=== PATIENT | female | born 1985 | race Two or more races ===

== ENCOUNTER 2025-04-11 00:47 | Observation (INO) | payer OTHER, SELFPAY ==
[2025-04-11] VITALS (25 sets, daily range): BP systolic 117; BP diastolic 67; PULSE 73–91; RESP 18–100; TEMP 36.7; O2SAT 96–99; BMI 30.6
[2025-04-11 02:24] LABS: Collection Type, Urine Clean Catch
[2025-04-11 02:42] LABS: Bacteria,Urine Rare; Bilirubin,Urine Negative (Negative); Blood,Urine Negative (Negative); Clarity,Urine Clear (Clear/Hazy); Color,Urine Lt-Yellow (Lt Yel-Yel); Glucose, Urine 2+ (Negative); Ketones,Urine Negative (Negative); Leukocyte Esterase,Urine Positive (Negative); Nitrite,Urine Negative (Negative); PH,Urine 5.5 (5.0-7.0); Protein,Urine Negative (Neg - Trace); RBC,Urine 1 /hpf (0-3); Specific Gravity,Urine 1.018 (1.001-1.035); Squamous Epithelial Cell,Urine 4 /hpf (0-5); Urobilinogen,Urine Negative mg/dL (0.0-1.0); WBC,Urine 4 /hpf (0-5)
[2025-04-11 02:50] LABS: FFN Specimen Descripton Clr Colrless Aqueous
[2025-04-11 02:51] LABS: Fetal Fibronectin Negative (Negative)
== END 2025-04-11 03:29 | disposition home or self-care (01) ==
PROVIDERS: Admitting Provider Obstetrics & Gynecology; PCP Advanced Practice Midwife; Visit Provider Obstetrics & Gynecology
DX: O26.893 Other specified pregnancy related conditions, third trimester (principal); Z3A.30 30 weeks gestation of pregnancy; R10.2 Pelvic and perineal pain; M54.9 Dorsalgia, unspecified
CPT/HCPCS: 59025; 59899; 81001; 82731

== ENCOUNTER 2025-04-14 09:47 | Outpatient (AMB) | payer OTHER, SELFPAY ==
[2025-04-14 10:06] VITALS: BP 110/66; PULSE 83; RESP 18; TEMP 36.5; O2SAT 97; BMI 30.9
--- NOTE | 2025-04-14 10:06 | OBCLNT_ITS ---
Vital Signs 04/14/25 10:06 Height 1.6 m Height Method Stated Weight 79.095 kg Weight Measurement Method Standing Scale BMI 30.9 BP 110/66 Blood Pressure Source Automatic Cuff Blood Pressure Location Right Upper Arm Position Sitting Respiration 18 Pulse 83 Pulse Source Monitor Temp 97.7 F Temp Source Temporal Artery Scan Pulse Oximetry (%) 97 Oxygen Delivery Method Room Air Allergies/Home Meds Allergies & Medications Allergies No Known Allergies Allergy (Verified 04/11/25 01:55) Intake Visit Data Collection New Patient or Established: Established Patient (seen at [facility] within 3 years) Reason for Visit:: OBI Seen by Clinical Staff ONLY (RN/MA): No Do You Feel Safe at Home: Yes Authorities Contacted: N/A PCP or OBGYN visit in last 3 months: Yes Hx Now: Yes Are you currently on any form of Control: No Last menstrual period: 08/28/24 Pain Present Currently: No Smoking Status Smoking Status: Never smoker Questionnaires Social History Tobacco History Smoking Status: Never smoker Domestic Abuse History Do You Feel Safe at Home: Yes History of Present Illness HPI Narrative 39-year-old 5 para 3 for OBI. Patient's transfer from Dr. Larsen's office with records. Her last period August 27, 2024. Estimated due date based on LMP was June 03, 2025. 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 First ultrasound was January 19, 2025. Patient was 18 weeks 6 days. And corrected TIM is June 16, 2025. Patient reports that she has not had any problems with the . She is in good contact with adoptive family. Patient is A+, antibody screen negative, RPR nonreactive, rubella immune, hepatitis B negative, hep C negative, HIV negative, rubella nonimmune. GC and Chlamydia were negative. aFP was negative. Cystic fibrosis and NIPT were all negative. Patient had a abnormal 1 hour GTT but 3-hour was normal. And her A1c 5.6. Patient has an ultrasound appointment pending with [facility] on April 28. Patient denies social habits. Denies surgery. Denies chronic illness. Patient reports good movement. 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 Patient is a transfer from Dr. Larsen's office with records. This is a surrogacy product . She has an TIM June 16, 2025. Just based on an 18-week ultrasound done in December. Reports good movement. Denies leaking, bleeding, contractions. The so far is been normal and no problems. She has a follow-up MFM appointment at [facility] April 28 Keep MFM ap pointment. Continue vitamins. Discussed labor precautions. Patient declined Tdap today. Return in 2 weeks for OB check Menstrual History Menstrual reliability: definite Flow: normal Menstrual regularity: regular Monthly: Yes On control pills at conception: No OB History : 5 Para: 3 Hx # Pregnancies: 0 Hx Total # of Abortions (Spontaneous & Elective): 1 # of Living Children: 3 Delivery History 1st : date: 12/04/05 sex: male Gestational age at delivery (weeks): 40 Delivery type: vaginal 2nd : date: 09/14/06 sex: male Gestational age at delivery (weeks): 40 Delivery type: vaginal 3rd : date: 12/28/14 sex: female Gestational age at delivery (weeks): 40 Delivery type: vaginal 4th : date: 04/08/24 Delivery complications: D&C Genetic Screening & History Genetic Screening/Teratology Counseling - Includes patient, baby's father, or anyone in either family with: 1. Patient's age 35 years or older as of estimated date of delivery: No 2. Thalassemia (Syriac, Welsh, Mediterranean, or Background); MCV less than 80: No 3. Neural Tube Defect (Meningomyelocele, Spina Bifida, or Anencephaly): No 4. Congenital Heart Defect: No 5. Down Syndrome: No 6. Christiano-Sachs (Ashkenazi Rastafarian, Cajun, Serbian Buchanan): No 7. Grant Disease (Ashkenazi Rastafarian): No 8. Familial Dysautonomia (Ashkenazi Rastafarian): No 9. Sickle Cell Disease or Trait (): No 10. Hemophilia or other blood disorders: No 11. Muscular Dystrophy: No 12. Cystic Fibrosis: No 13. Codington's Chorea: No 14. Mental Retardation/Autism: No 15. Other inherited genetic or chromosomal disorder: No 16. Maternal Metabolic Disorder (EG,TYPE 1 Diabetes, PKU): No 17. Patient or baby's father had a child with defects not listed above: No 18. Recurrent loss or a stillbirth: No 19. Medications (including supplements, vitamins, herbs or otc drugs)/illicit/recreational drugs/alcohol since last menstrual period: No 20. Any other: No Infection History 1. Live with someone with TB or exposed to TB: No 2. Rash or viral illness since last menstrual period: No 3. Hepatitis B,C: No Other (see comments) Source: [employer] Review of Systems Review of Systems Systems Reviewed: All systems reviewed, normal except as documented Exam General Limitations: no limitations General Appearance: alert, in no apparent distress, comfortable, cooperative, healthy appearing, well developed and well groomed Head Head exam: atraumatic, normocephalic and normal inspection Neck Neck exam: Present normal inspection, full ROM and trachea midline Chest Chest inspection: Present normal inspection and symmetric chest wall rise Resp Respiratory exam: Present normal lung sounds bilaterally Card Cardiovascular exam: Present regular rate, normal rhythm and normal heart sounds Abdominal Abdominal exam: Present soft and normal bowel sounds Extremities Extremities exam: Present normal inspection and full ROM Psych Psychiatric exam: Present normal affect and normal mood Assessment & Plan Diagnosis / Problem List (1) Encounter for supervision of high risk in third trimester, antepartum: Status: Acute Plan MFM appointment April 28. Discussed labor precautions. Kick count twice a day. Patient will ask adoptive parents if they want her to get Tdap and let me know. Continue vitamins. Return in 2 weeks OB check Additional Plan Follow Up: 2 Weeks (obc)
== END 2025-04-14 10:44 | disposition home or self-care (01) ==
LOC: HODSOBC 09:47
PROVIDERS: Supervising Provider Advanced Practice Midwife; Visit Provider Advanced Practice Midwife
DX: O09.93 Supervision of high risk pregnancy, unspecified, third trimester (principal); Z3A.31 31 weeks gestation of pregnancy; Z28.21 Immunization not carried out because of patient refusal
CPT/HCPCS: 99204; G0463

== ENCOUNTER 2025-04-29 11:26 | Outpatient (AMB) | payer OTHER, SELFPAY ==
--- NOTE | 2025-04-29 11:31 | OBCLNT_ITS ---
Vital Signs 04/29/25 11:37 Height 1.6 m Height Method Stated Weight 79.832 kg Weight Measurement Method Standing Scale BMI 31.1 BP 115/73 Blood Pressure Source Automatic Cuff Blood Pressure Location Left Upper Arm Position Sitting Respiration 16 Pulse 81 Pulse Source Monitor Temp 97.2 F Temp Source Oral Pulse Oximetry (%) 98 Oxygen Delivery Method Room Air Allergies/Home Meds Allergies & Medications Allergies No Known Allergies Allergy (Verified 04/29/25 11:32) Medication Reconciliation aspirin 81 mg tablet,delayed release 81 mg PO QDAY 04/11/25 [History Confirmed 04/29/25] vits no.130-ferrous fum 27 mg iron-folic acid 800 mcg tablet ( Vitamin) 1 tab PO QDAY 04/11/25 [History Confirmed 04/29/25] Intake Visit Data Collection New Patient or Established: Established Patient (seen at [facility] within 3 years) Reason for Visit:: OBC Seen by Clinical Staff ONLY (RN/MA): No Transporter Radiology Required: No Do You Feel Safe at Home: Yes Authorities Contacted: N/A PCP or OBGYN visit in last 3 months: Yes Date of Last PCP or OBGYN visit: 04/11/25 Hx Now: Yes Are you currently on any form of Control: No Pain Present Currently: No Pain Scale Used: Redman-Pereira/Numerical Pain scale:: 0 Smoking Status Smoking Status: Never smoker Questionnaires Covid-19 Vaccine Questionnaire Has patient been vacinated for Covid-19 Have you been vacinated for Covid-19: No PHQ-9 PHQ-2 Over the last 2 weeks, how often have you been bothered by any of the following problems? 1. Little interest or pleasure in doing things: not at all 2. Feeling down, depressed, or hopeless: not at all Total score: 0 PHQ-9 3. Trouble falling or staying asleep, or sleeping too much: Not at all 4. Feeling tired or having little energy: Not at all 5. Poor appetite or overeating: Not at all 6. Feeling bad about yourself - or that you are a failure or have let yourself or your family down: Not at all 7. Trouble concentrating on things, such as reading the newspaper or watching television: Not at all 8. Moving or speaking so slowly that other people could have noticed? - Or the opposite - being so fidgety or restless that you have been moving around a lot more than usual: not at all 9. Thoughts that you would be better off or of hurting yourself in some way: Not at all Total score: 0 If you checked off any problems, how difficult have these problems made it for you to do your work, take care of things at home, or get along with other people?: not difficult at all Source: Developed by Drs. Alexander Butterfield, Laney Ji, Gordo Avila and colleagues, with an educational charles from [employer]. 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 Patient is a transfer from Dr. Larsen's office with records. This is a surrogacy product . She has an TIM June 16, 2025. Just based on an 18-week ultrasound done in December. Reports good movement. Denies leaking, bleeding, contractions. The so far is been normal and no problems. She has a follow-up MFM appointment at [facility] April 28 Keep MFM ap pointment. Continue vitamins. Discussed labor precautions. Patient declined Tdap today. Return in 2 weeks for OB check 04/29/25 -?-?-?-?-?-?-?-?-?-?-?-?- 33w 1d 79.832 kg 115/73 absent cephalic 33 140 active Reports movement. Denies labor symptoms. Denies contractions, bleeding or leaking. Patient has a follow-up MFM ultrasound in 3 weeks and also echo. Return in 2 week s. GBS next visit. Keep appointment for echo and follow- up MFM. Discussed kick count and labor precautions. Increase fluids. TIM Calculator Estimated Delivery Date Method Current WG Current Estimate 06/16/25 Ultrasound #1 33w 1d Other Estimates 06/23/25 LMP (Certain) 32w 1d 06/09/25 Ultrasound #2 34w 1d 06/16/25 Manual 33w 1d final tim: 05/24 12/14 Notes Visit Date: 04/29/25 Last Updated by: Jess Delvalle CNM sono 04/28/25: IUP 33 wk. EFW 91 %, ECHO ordered for IVF/Surrogacy, Ummbilical Vein varix, focal dilation of umb vein.. Star NST wk at 36 week. .f/u mfm 2 wk Visit Date: 04/14/25 Last Updated by: Jess Delvalle CNM 39 yo . 1st OB sono: 01/19/25. IUP 18w6. TIM: !. A+,ABS-, rpr::nr, RUB NI, Hbsag-, hiv-, HC-, GC/CT-. UT-, NIPT,AFP,carrier screen-, 1 hr gtt eevated, 3 hr gtt: normal. A1c>: 5.6 Office Procedures OBC Clinic LOC & Office Proc's Nursing/Assessment Patient Status: Established Patient OB Clinic Nursing Assessment: Medication Reconciliation, Update PMH in EMR and Vital Signs OB Clinic Coordination of Care: Consent,records obtained, informed consent, Education Simp Pt/Fam, Lab and Imaging orders, Results/Orders obtained and Staff clarify orders Special Needs: Heart tones Established Patient Charge Established Patient Point Assignment: 110 Established Patient Point Charge: EP Level 3 (80-115) Assessment & Plan Diagnosis / Problem List (1) Encounter for supervision of high risk in third trimester, antepartum: Status: Acute (2) Advanced maternal age (AMA) in : Status: Acute Plan Start NST BPP at 36 weeks. Discussed labor precautions patient. Discussed kick count twice a day. Patient has a follow-up with M for Doppler and echo in 2 weeks. GBS at 35 weeks. Return in 2 weeks OB check Additional Plan Follow Up: 2 Weeks (obc)
[2025-04-29 11:37] VITALS: BP 115/73; PULSE 81; RESP 16; TEMP 36.2; O2SAT 98; BMI 31.1
== END 2025-04-29 11:44 | disposition home or self-care (01) ==
LOC: HODSOBC 11:26
PROVIDERS: Supervising Provider Advanced Practice Midwife; Visit Provider Advanced Practice Midwife
DX: O09.523 Supervision of elderly multigravida, third trimester (principal); O09.813 Supervision of pregnancy resulting from assisted reproductive technology, third trimester; O09.43 Supervision of pregnancy with grand multiparity, third trimester; Z3A.33 33 weeks gestation of pregnancy; Z33.3 Pregnant state, gestational carrier
CPT/HCPCS: 99213; G0463

== ENCOUNTER 2025-05-14 10:55 | Outpatient (AMB) | payer OTHER, SELFPAY ==
[2025-05-14 11:05] VITALS: BP 116/73; PULSE 83; RESP 18; TEMP 36.2; O2SAT 98; BMI 31.8
--- NOTE | 2025-05-14 11:05 | OBCLNT_ITS ---
Vital Signs 05/14/25 11:05 Height 1.6 m Height Method Stated Weight 81.42 kg Weight Measurement Method Standing Scale BMI 31.8 BP 116/73 Blood Pressure Source Automatic Cuff Blood Pressure Location Left Upper Arm Position Sitting Respiration 18 Pulse 83 Pulse Source Monitor Temp 97.2 F Temp Source Oral Pulse Oximetry (%) 98 Oxygen Delivery Method Room Air Allergies/Home Meds Allergies & Medications Allergies No Known Allergies Allergy (Verified 05/14/25 11:07) Medication Reconciliation aspirin 81 mg tablet,delayed release 81 mg PO QDAY 04/11/25 [History Confirmed 05/14/25] vits no.130-ferrous fum 27 mg iron-folic acid 800 mcg tablet ( Vitamin) 1 tab PO QDAY 04/11/25 [History Confirmed 05/14/25] Intake Visit Data Collection New Patient or Established: Established Patient (seen at [facility] within 3 years) Reason for Visit:: OBC Seen by Clinical Staff ONLY (RN/MA): No Cupola Tapper Required: No Do You Feel Safe at Home: Yes Authorities Contacted: N/A PCP or OBGYN visit in last 3 months: Yes Date of Last PCP or OBGYN visit: 04/23/25 Hx Now: Yes Are you currently on any form of Control: No Pain Present Currently: No Pain Scale Used: Redman-Pereira/Numerical Pain scale:: 0 Smoking Status Smoking Status: Never smoker Immunizations Flu Vaccine in the Last 12 Months: No Flu Vaccine Exclusion Criteria: No Exclusion Criteria Questionnaires Covid-19 Vaccine Questionnaire Has patient been vacinated for Covid-19 Have you been vacinated for Covid-19: No PHQ-9 PHQ-2 Over the last 2 weeks, how often have you been bothered by any of the following problems? 1. Little interest or pleasure in doing things: not at all 2. Feeling down, depressed, or hopeless: not at all Total score: 0 PHQ-9 3. Trouble falling or staying asleep, or sleeping too much: Not at all 4. Feeling tired or having little energy: Not at all 5. Poor appetite or overeating: Not at all 6. Feeling bad about yourself - or that you are a failure or have let yourself or your family down: Not at all 7. Trouble concentrating on things, such as reading the newspaper or watching television: Not at all 8. Moving or speaking so slowly that other people could have noticed? - Or the opposite - being so fidgety or restless that you have been moving around a lot more than usual: not at all 9. Thoughts that you would be better off or of hurting yourself in some way: Not at all Total score: 0 If you checked off any problems, how difficult have these problems made it for you to do your work, take care of things at home, or get along with other people?: not difficult at all Source: Developed by Drs. Alexander Butterfield, Laney Ji, Gordo Avila and colleagues, with an educational charles from [employer]. 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 Patient is a transfer from Dr. Larsen's office with records. This is a surrogacy product . She has an TIM June 16, 2025. Just based on an 18-week ultrasound done in December. Reports good movement. Denies leaking, bleeding, contractions. The so far is been normal and no problems. She has a follow-up MFM appointment at [facility] April 28 Keep MFM ap pointment. Continue vitamins. Discussed labor precautions. Patient declined Tdap today. Return in 2 weeks for OB check 04/29/25 -?-?-?-?-?-?-?-?-?-?-?-?- 33w 1d 79.832 kg 115/73 absent cephalic 33 140 active Reports movement. Denies labor symptoms. Denies contractions, bleeding or leaking. Patient has a follow-up MFM ultrasound in 3 weeks and also echo. Return in 2 week s. GBS next visit. Keep appointment for echo and follow- up MFM. Discussed kick count and labor precautions. Increase fluids. 05/14/25 -?-?-?-?-?-?-?-?-?-?-?-?- 35w 2d 81.42 kg 116/73 absent cephalic 35 145 active Fetus active. Denies contractions, leaking, bleeding GBS today. Discussed labor precautions. Kick count twice a day. Patient NST is pending. She has follow-up ultrasound in a week with MFM and return in a week for OB check TIM Calculator Estimated Delivery Date Method Current WG Current Estimate 06/16/25 Ultrasound #1 35w 2d Other Estimates 06/23/25 LMP (Certain) 34w 2d 06/09/25 Ultrasound #2 36w 2d 06/16/25 Manual 35w 2d final tim: 05/24 12/14 Notes Visit Date: 04/29/25 Last Updated by: Jess Dlevalle CNM sono 04/28/25: IUP 33 wk. EFW 91 %, ECHO ordered for IVF/Surrogacy, Ummbilical Vein varix, focal dilation of umb vein.. Star NST wk at 36 week. .f/u mfm 2 wk Visit Date: 04/14/25 Last Updated by: Jess Delvalle CNM 39 yo . 1st OB sono: 01/19/25. IUP 18w6. TIM: !!. A+,ABS-, rpr::nr, RUB NI, Hbsag-, hiv-, HC-, GC/CT-. UT-, NIPT,AFP,carrier screen-, 1 hr gtt eevated, 3 hr gtt: normal. A1c>: 5.6 Office Procedures OBC Clinic LOC & Office Proc's Nursing/Assessment Patient Status: Established Patient OB Clinic Nursing Assessment: Medication Reconciliation, Update PMH in EMR and Vital Signs OB Clinic Coordination of Care: Consent,records obtained, informed consent, Education Simp Pt/Fam, Lab and Imaging orders, Results/Orders obtained and Staff clarify orders Special Needs: Heart tones Established Patient Charge Established Patient Point Assignment: 110 Established Patient Point Charge: EP Level 3 (80-115) Injection/Vaccine Admin SQ Im Injection: Yes Immunizations diphth,pertus(acell),tetanus 2.5 Lf unit-8 mcg-5 Lf/0.5mL IM syringe Performing Provider: Jess Delvalle CNM Performing Location: [facility] INFORMATION TECHNOLOGY CONSULTANT Clinic Administered by: Maribell Albrecht MA on 05/14/25 13:08 Dose Route Admin Location Dispensed Lot Number Expiration Date Pack age NDC NDC Ammunition Components Inspector 0.5 mL IM Left Deltoid 0.5 mL [id number] 06/19/27 [id number] [employer] VIS Given Date VIS Provided VIS Publication Date 05/14/25 Single Vaccine 24 Eligibility Eligibility Date Funding Source Public Non-[facility] Assessment & Plan Diagnosis / Problem List (1) Encounter for supervision of high risk in third trimester, antepartum: Status: Acute Plan GBS today. Discussed labor precautions. Kick count twice a day. Patient will begin NST BPP. Return in a week for OB check. I discussed diet and weight and increasing activity Additional Plan Follow Up: 1 Week (obc)
== END 2025-05-14 12:05 | disposition home or self-care (01) ==
LOC: HODSOBC 10:55
PROVIDERS: Supervising Provider Advanced Practice Midwife; Visit Provider Advanced Practice Midwife
DX: O09.523 Supervision of elderly multigravida, third trimester (principal); Z3A.35 35 weeks gestation of pregnancy; Z23 Encounter for immunization; Z36.85 Encounter for antenatal screening for Streptococcus B
CPT/HCPCS: 90471; 90715; 96372; 99213; G0463

== ENCOUNTER 2025-05-22 09:57 | Outpatient (AMB) | payer OTHER, SELFPAY ==
[2025-05-22 10:11] VITALS: BP 122/82; PULSE 98; RESP 18; TEMP 36.6; O2SAT 97; BMI 32.8
--- NOTE | 2025-05-22 10:11 | OBCLNT_ITS ---
Vital Signs 05/22/25 10:11 Height 1.6 m Height Method Stated Weight 84.028 kg Weight Measurement Method Standing Scale BMI 32.8 BP 122/82 Blood Pressure Source Automatic Cuff Blood Pressure Location Left Upper Arm Position Sitting Respiration 18 Pulse 98 Pulse Source Monitor Temp 98 F Temp Source Oral Pulse Oximetry (%) 97 Oxygen Delivery Method Room Air Allergies/Home Meds Allergies & Medications Allergies No Known Allergies Allergy (Verified 05/22/25 10:12) Medication Reconciliation aspirin 81 mg tablet,delayed release 81 mg PO QDAY 04/11/25 [History Confirmed 05/22/25] vits no.130-ferrous fum 27 mg iron-folic acid 800 mcg tablet ( Vitamin) 1 tab PO QDAY 04/11/25 [History Confirmed 05/22/25] Intake Visit Data Collection New Patient or Established: Established Patient (seen at [facility] within 3 years) Reason for Visit:: CARE Seen by Clinical Staff ONLY (RN/MA): No 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 Do You Feel Safe at Home: Yes Authorities Contacted: N/A PCP or OBGYN visit in last 3 months: Yes Hx Now: Yes Are you currently on any form of Control: No Pain Present Currently: No Pain Scale Used: Redman-Pereira/Numerical Pain scale:: 0 Smoking Status Smoking Status: Never smoker Immunizations Flu Vaccine in the Last 12 Months: No Flu Vaccine Exclusion Criteria: Refused by Patient Questionnaires Covid-19 Vaccine Questionnaire Has patient been vacinated for Covid-19 Have you been vacinated for Covid-19: No PHQ-9 PHQ-2 Over the last 2 weeks, how often have you been bothered by any of the following problems? 1. Little interest or pleasure in doing things: not at all 2. Feeling down, depressed, or hopeless: not at all Total score: 0 PHQ-9 3. Trouble falling or staying asleep, or sleeping too much: Not at all 4. Feeling tired or having little energy: Not at all 5. Poor appetite or overeating: Not at all 6. Feeling bad about yourself - or that you are a failure or have let yourself or your family down: Not at all 7. Trouble concentrating on things, such as reading the newspaper or watching television: Not at all 8. Moving or speaking so slowly that other people could have noticed? - Or the opposite - being so fidgety or restless that you have been moving around a lot more than usual: not at all 9. Thoughts that you would be better off or of hurting yourself in some way: Not at all Total score: 0 Source: Developed by Drs. Alexander Butterfield, Laney Ji, Gordo Avila and colleagues, with an educational charles from [employer]. 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 Patient is a transfer from Dr. Larsen's office with records. This is a surrogacy product . She has an TIM June 16, 2025. Just based on an 18-week ultrasound done in December. Reports good movement. Denies leaking, bleeding, contractions. The so far is been normal and no problems. She has a follow-up MFM appointment at [facility] April 28 Keep MFM ap pointment. Continue vitamins. Discussed labor precautions. Patient declined Tdap today. Return in 2 weeks for OB check 04/29/25 -?-?-?-?-?-?-?-?-?-?-?-?- 33w 1d 79.832 kg 115/73 absent cephalic 33 140 active Reports movement. Denies labor symptoms. Denies contractions, bleeding or leaking. Patient has a follow-up MFM ultrasound in 3 weeks and also echo. Return in 2 week s. GBS next visit. Keep appointment for echo and follow- up MFM. Discussed kick count and labor precautions. Increase fluids. 05/14/25 -?-?-?-?-?-?-?-?-?-?-?-?- 35w 2d 81.42 kg 116/73 absent cephalic 35 145 active Fetus active. Denies contractions, leaking, bleeding GBS today. Discussed labor precautions. Kick count twice a day. Patient NST is pending. She has follow-up ultrasound in a week with MFM and return in a week for OB check 05/22/25 -?-?-?-?-?-?-?-?-?-?-?-?- 36w 3d 84.028 kg 122/82 absent cephalic 36 145 active No OB complaints. Reports good movement. No leaking, bleeding, contractions IOL 1 week IOL 06/10/25, patient has we ekly NST BPP for AMA and surrogacy. Kick count twice a day. Discussed labor precautions return in a week OB check TIM Calculator Estimated Delivery Date Method Current WG Current Estimate 06/16/25 Ultrasound #1 36w 3d Other Estimates 06/23/25 LMP (Certain) 35w 3d 06/09/25 Ultrasound #2 37w 3d 06/16/25 Manual 36w 3d final tim: 05/24 12/14 Notes Visit Date: 05/22/25 Last Updated by: Jess Delvalle CNM GBS-, sono: 05/15: 31% EFW at 35w3, umbilical vein varix Visit Date: 04/29/25 Last Updated by: Jess Delvalle CNM sono 04/28/25: IUP 33 wk. EFW 91 %, ECHO ordered for IVF/Surrogacy, Ummbilical Vein varix, focal dilation of umb vein.. Star NST wk at 36 week. .f/u mfm 2 wk Visit Date: 04/14/25 Last Updated by: Jess Delvalle CNM 39 yo . 1st OB sono: 01/19/25. IUP 18w6. TIM: !. A+,ABS-, rpr:: nr, RUB NI, Hbsag-, hiv-, HC-, GC/CT-. UT-, NIPT,AFP,carrier screen-, 1 hr gtt eevated, 3 hr gtt: normal. A1c>: 5.6 Office Procedures OBC Clinic LOC & Office Proc's Nursing/Assessment Patient Status: Established Patient OB Clinic Nursing Assessment: Medication Reconciliation, Update PMH in EMR and Vital Signs OB Clinic Coordination of Care: AMA, Complex Care and Chronic Disease 1-5, Consent,records obtained, informed consent, Education Simp Pt/Fam, Lab and Imaging orders, Results/Orders obtained and Staff clarify orders Special Needs: Heart tones Established Patient Charge Established Patient Point Assignment: 155 Established Patient Point Charge: EP Level 4 (120-155) Assessment & Plan Diagnosis / Problem List (1) Supervision of resulting from assisted reproductive technology, third trimester: Status: Acute (2) Advanced maternal age (AMA) in : Status: Acute (3) Encounter for supervision of high risk in third trimester, antepartum: Status: Acute Plan Induction scheduled for June 10. Discussed labor precautions. Kick count twice a day. Continue weekly NST BPP and prenatals and return in a week for OB check Additional Plan Follow Up: 1 Week (obc)
== END 2025-05-22 11:32 | disposition home or self-care (01) ==
LOC: HODSOBC 09:57
PROVIDERS: Supervising Provider Advanced Practice Midwife; Visit Provider Advanced Practice Midwife
DX: O09.813 Supervision of pregnancy resulting from assisted reproductive technology, third trimester (principal); O09.523 Supervision of elderly multigravida, third trimester; Z3A.36 36 weeks gestation of pregnancy; Z33.3 Pregnant state, gestational carrier
CPT/HCPCS: 99214; G0463

== ENCOUNTER 2025-06-03 11:37 | Outpatient (AMB) | payer OTHER, SELFPAY ==
[2025-06-03 11:41] VITALS: BP 122/78; PULSE 93; RESP 18; TEMP 36.5; O2SAT 97; BMI 33.1
--- NOTE | 2025-06-03 11:41 | OBCLNT_ITS ---
Vital Signs 06/03/25 11:41 Height 1.6 m Height Method Stated Weight 84.935 kg Weight Measurement Method Standing Scale BMI 33.1 BP 122/78 Blood Pressure Source Automatic Cuff Blood Pressure Location Left Upper Arm Position Sitting Respiration 18 Pulse 93 Pulse Source Monitor Temp 97.7 F Temp Source Oral Pulse Oximetry (%) 97 Oxygen Delivery Method Room Air Allergies/Home Meds Allergies & Medications Allergies No Known Allergies Allergy (Verified 06/03/25 11:41) Medication Reconciliation aspirin 81 mg tablet,delayed release 81 mg PO QDAY 04/11/25 [History Confirmed 06/03/25] vits no.130-ferrous fum 27 mg iron-folic acid 800 mcg tablet ( Vitamin) 1 tab PO QDAY 04/11/25 [History Confirmed 06/03/25] Intake Visit Data Collection New Patient or Established: Established Patient (seen at [facility] within 3 years) Reason for Visit:: CARE/ PELVIC CHECK Seen by Clinical Staff ONLY (RN/MA): No Stockroom Keeper Required: No Do You Feel Safe at Home: Yes Authorities Contacted: N/A PCP or OBGYN visit in last 3 months: Yes Hx Now: Yes Are you currently on any form of Control: No Pain Present Currently: No Pain Scale Used: Redman-Pereira/Numerical Pain scale:: 0 Smoking Status Smoking Status: Never smoker Immunizations Flu Vaccine in the Last 12 Months: Yes Flu Vaccine Exclusion Criteria: Already Received Questionnaires Covid-19 Vaccine Questionnaire Has patient been vacinated for Covid-19 Have you been vacinated for Covid-19: Yes PHQ-9 PHQ-2 Over the last 2 weeks, how often have you been bothered by any of the following problems? 1. Little interest or pleasure in doing things: not at all 2. Feeling down, depressed, or hopeless: not at all Total score: 0 PHQ-9 3. Trouble falling or staying asleep, or sleeping too much: Not at all 4. Feeling tired or having little energy: Not at all 5. Poor appetite or overeating: Not at all 6. Feeling bad about yourself - or that you are a failure or have let yourself or your family down: Not at all 7. Trouble concentrating on things, such as reading the newspaper or watching television: Not at all 8. Moving or speaking so slowly that other people could have noticed? - Or the opposite - being so fidgety or restless that you have been moving around a lot more than usual: not at all 9. Thoughts that you would be better off or of hurting yourself in some way: Not at all Total score: 0 Source: Developed by Drs. Alexander Butterfield, Laney Ji, Gordo Avila and colleagues, with an educational charles from [employer]. 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 Patient is a transfer from Dr. Larsen's office with records. This is a surrogacy product . She has an TIM June 16, 2025. Just based on an 18-week ultrasound done in December. Reports good movement. Denies leaking, bleeding, contractions. The so far is been normal and no problems. She has a follow-up MFM appointment at [facility] April 28 Keep MFM ap pointment. Continue vitamins. Discussed labor precautions. Patient declined Tdap today. Return in 2 weeks for OB check 04/29/25 -?-?-?-?-?-?-?-?-?-?-?-?- 33w 1d 79.832 kg 115/73 absent cephalic 33 140 active Reports movement. Denies labor symptoms. Denies contractions, bleeding or leaking. Patient has a follow-up MFM ultrasound in 3 weeks and also echo. Return in 2 week s. GBS next visit. Keep appointment for echo and follow- up MFM. Discussed kick count and labor precautions. Increase fluids. 05/14/25 -?-?-?-?-?-?-?-?-?-?-?-?- 35w 2d 81.42 kg 116/73 absent cephalic 35 145 active Fetus active. Denies contractions, leaking, bleeding GBS today. Discussed labor precautions. Kick count twice a day. Patient NST is pending. She has follow-up ultrasound in a week with MFM and return in a week for OB check 05/22/25 -?-?-?-?-?-?-?-?-?-?-?-?- 36w 3d 84.028 kg 122/82 absent cephalic 36 145 active No OB complaints. Reports good movement. No leaking, bleeding, contractions IOL 1 week IOL 06/10/25, patient has we ekly NST BPP for AMA and surrogacy. Kick count twice a day. Discussed labor precautions return in a week OB check 06/03/25 -?-?-?-?-?-?-?-?-?-?-?-?- 38w 1d 84.935 kg 122/78 absent cephalic 38 145 active 1 -3 50 No OB complaints. Doing well. Fetus active denies leaking denies bleeding. Increased pressure Induction of labor scheduled for June 10. Discussed labor precautions. Kick count. Discussed danger signs symptoms return week OB to TIM Calculator Estimated Delivery Date Method Current WG Current Estimate 06/16/25 Ultrasound #1 38w 1d Other Estimates 06/23/25 LMP (Certain) 37w 1d 06/09/25 Ultrasound #2 39w 1d 06/16/25 Manual 38w 1d final tim: 05/24 12/14 Notes Visit Date: 05/22/25 Last Updated by: Jess Delvalle CNM GBS-, sono: 05/15: 31% EFW at 35w3, umbilical vein varix Visit Date: 04/29/25 Last Updated by: Jess Delvalle CNM sono 04/28/25: IUP 33 wk. EFW 91 %, ECHO ordered for IVF/Surrogacy, Ummbilical Vein varix, focal dilation of umb vein.. Star NST wk at 36 week. .f/u mfm 2 wk Visit Date: 04/14/25 Last Updated by: Jess Delvalle CNM 39 yo . 1st OB sono: 01/19/25. IUP 18w6. TIM: !!. A+,ABS-, rpr::nr, RUB NI, Hbsag-, hiv-, HC-, GC/CT-. UT-, NIPT,AFP,carrier screen-, 1 hr gtt eevated, 3 hr gtt: normal. A1c>: 5.6 Office Procedures OBC Clinic LOC & Office Proc's Nursing/Assessment Patient Status: Established Patient OB Clinic Nursing Assessment: Medication Reconciliation, Update PMH in EMR and Vital Signs OB Clinic Coordination of Care: Complex Care and Chronic Disease 1-5, Consent,records obtained, informed consent, Education Simp Pt/Fam, 1 Ins Authorization, Lab and Imaging orders, Results/Orders obtained and Staff clarify orders Special Needs: Heart tones Miscellaneous Interventions: Pelvic no cultures Established Patient Charge Established Patient Point Assignment: 160 Established Patient Point Charge: EP Level 5 (160-above) Assessment & Plan Diagnosis / Problem List (1) Supervision of resulting from assisted reproductive technology, third trimester: Status: Acute (2) Encounter for supervision of high risk in third trimester, antepartum: Status: Acute (3) Advanced maternal age (AMA) in : Status: Acute Plan Discussed kick count twice a day. Labor precautions. Discussed danger signs symptoms ER precautions. Return in week OB check Additional Plan Follow Up: 1 Week (obc)
== END 2025-06-03 11:50 | disposition home or self-care (01) ==
LOC: HODSOBC 11:37
PROVIDERS: Supervising Provider Advanced Practice Midwife; Visit Provider Advanced Practice Midwife
DX: O09.813 Supervision of pregnancy resulting from assisted reproductive technology, third trimester (principal); O09.523 Supervision of elderly multigravida, third trimester; Z3A.38 38 weeks gestation of pregnancy
CPT/HCPCS: 99215; G0463

== ENCOUNTER 2025-06-08 13:19 | Outpatient (AMB) | payer OTHER, SELFPAY ==
--- NOTE | 2025-06-08 13:20 | AMB.OBVISIT ---
Allergies/Home Meds Allergies & Medications Allergies No Known Allergies Allergy (Verified 06/08/25 13:27) Medication Reconciliation aspirin 81 mg tablet,delayed release 81 mg PO QDAY 04/11/25 [History Confirmed 06/08/25] vits no.130-ferrous fum 27 mg iron-folic acid 800 mcg tablet ( Vitamin) 1 tab PO QDAY 04/11/25 [History Confirmed 06/08/25] Intake Visit Data Collection New Patient or Established: Established Patient (seen at [facility] within 3 years) Reason for Visit:: OBC Seen by Clinical Staff ONLY (RN/MA): No Manager Interventional Required: No Do You Feel Safe at Home: Yes Authorities Contacted: N/A PCP or OBGYN visit in last 3 months: Yes Date of Last PCP or OBGYN visit: 06/03/25 Hx Now: Yes Are you currently on any form of Control: No Pain Present Currently: No Pain Scale Used: Redman-Pereira/Numerical Pain scale:: 0 Smoking Status Smoking Status: Never smoker Immunizations Flu Vaccine in the Last 12 Months: No Flu Vaccine Exclusion Criteria: No Exclusion Criteria Questionnaires Covid-19 Vaccine Questionnaire Has patient been vacinated for Covid-19 Have you been vacinated for Covid-19: No PHQ-9 PHQ-2 Over the last 2 weeks, how often have you been bothered by any of the following problems? 1. Little interest or pleasure in doing things: not at all 2. Feeling down, depressed, or hopeless: not at all Total score: 0 PHQ-9 3. Trouble falling or staying asleep, or sleeping too much: Not at all 4. Feeling tired or having little energy: Not at all 5. Poor appetite or overeating: Not at all 6. Feeling bad about yourself - or that you are a failure or have let yourself or your family down: Not at all 7. Trouble concentrating on things, such as reading the newspaper or watching television: Not at all 8. Moving or speaking so slowly that other people could have noticed? - Or the opposite - being so fidgety or restless that you have been moving around a lot more than usual: not at all 9. Thoughts that you would be better off or of hurting yourself in some way: Not at all Total score: 0 If you checked off any problems, how difficult have these problems made it for you to do your work, take care of things at home, or get along with other people?: not difficult at all Source: Developed by Drs. Alexander Butterfield, Laney Ji, Gordo Avila and colleagues, with an educational charles from [employer]. 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 Patient is a transfer from Dr. Larsen's office with records. This is a surrogacy product . She has an TIM June 16, 2025. Just based on an 18-week ultrasound done in December. Reports good movement. Denies leaking, bleeding, contractions. The so far is been normal and no problems. She has a follow-up MFM appointment at [facility] April 28 Keep MFM appointment. Continue vitamins. Discussed labor precautions. Patient declined Tdap today. Return in 2 weeks for OB check 04/29/25 <del>?</del> 33w 1d 79.832 kg 115/73 absent cephalic 33 140 active Reports movement. Denies labor symptoms. Denies contractions, bleeding or leaking. Patient has a follow-up MFM ultrasound in 3 weeks and also echo. Return in 2 weeks. GBS next visit. Keep appointment for echo and follow-up MFM. Discussed kick count and labor precautions. Increase fluids. 05/14/25 <del>?</del> 35w 2d 81.42 kg 116/73 absent cephalic 35 145 active Fetus active. Denies contractions, leaking, bleeding GBS today. Discussed labor precautions. Kick count twice a day. Patient NST is pending. She has follow-up ultrasound in a week with MFM and return in a week for OB check 05/22/25 <del>?</del> 36w 3d 84.028 kg 122/82 absent cephalic 36 145 active No OB complaints. Reports good movement. No leaking, bleeding, contractions IOL 1 week IOL 06/10/25, patient has weekly NST BPP for AMA and surrogacy. Kick count twice a day. Discussed labor precautions return in a week OB check 06/03/25 <del>?</del> 38w 1d 84.935 kg 122/78 absent cephalic 38 145 active 1 -3 50 No OB complaints. Doing well. Fetus active denies leaking denies bleeding. Increased pressure Induction of labor scheduled for June 10. Discussed labor precautions. Kick count. Discussed danger signs symptoms return week OB to 06/08/25 <del>?</del> 38w 6d absent cephalic 38 145 active 1 -3 50 No OB complaints. Denies leaking, bleeding, contractions. Reports good movement Induction scheduled for June 10, 2025. Discussed labor precautions and kick count. Discussed danger signs symptoms return in a week for OB check TIM Calculator Estimated Delivery Date Method Current WG Current Estimate 06/16/25 Ultrasound #1 38w 6d Other Estimates 06/23/25 LMP (Certain) 37w 6d 06/09/25 Ultrasound #2 39w 6d 06/16/25 Manual 38w 6d final tim: 06/16/25 Notes Visit Date: 05/22/25 Last Updated by: Jess Delvalle CNM GBS-, sono: 05/15: 31% EFW at 35w3, umbilical vein varix Visit Date: 04/29/25 Last Updated by: Jess Delvalle CNM sono 04/28/25: IUP 33 wk. EFW 91 %, ECHO ordered for IVF/Surrogacy, Ummbilical Vein varix, focal dilation of umb vein.. Star NST wk at 36 week. .f/u mfm 2 wk Visit Date: 04/14/25 Last Updated by: Jess Delvalle CNM 39 yo . 1st OB sono: 01/19/25. IUP 18w6. TIM: !. A+,ABS-, rpr::nr, RUB NI, Hbsag-, hiv-, HC-, GC/CT-. UT-, NIPT,AFP,carrier screen-, 1 hr gtt eevated, 3 hr gtt: normal. A1c>: 5.6 Office Procedures OBC Clinic LOC & Office Proc's Nursing/Assessment Patient Status: Established Patient OB Clinic Nursing Assessment: Medication Reconciliation, Update PMH in EMR and Vital Signs OB Clinic Coordination of Care: Consent,records obtained, informed consent, Education Simp Pt/Fam, Lab and Imaging orders, Results/Orders obtained and Staff clarify orders Special Needs: Heart tones Established Patient Charge Established Patient Point Assignment: 110 Established Patient Point Charge: EP Level 3 (80-115) Assessment & Plan Diagnosis / Problem List (1) Supervision of resulting from assisted reproductive technology, third trimester: Status: Acute Plan Discussed labor precautions. Kick count twice a day. Patient scheduled for induction June 10, 2025. Discussed ER precautions and danger signs and symptoms return in a week if patient is not getting in for induction Additional Plan Follow Up: 1 Week (obc)
== END 2025-06-08 14:15 | disposition home or self-care (01) ==
LOC: HODSOBC 13:19
PROVIDERS: Supervising Provider Advanced Practice Midwife; Visit Provider Advanced Practice Midwife
DX: O09.813 Supervision of pregnancy resulting from assisted reproductive technology, third trimester (principal); O09.523 Supervision of elderly multigravida, third trimester; Z3A.38 38 weeks gestation of pregnancy; Z33.3 Pregnant state, gestational carrier
CPT/HCPCS: 99213; G0463

== ENCOUNTER 2025-06-09 14:35 | Outpatient (RCR) | payer OTHER, SELFPAY ==
--- NOTE | 2025-05-19 15:16 | XR_ITS ---
Examination: Biophysical profile, ultrasound Date and time of exam: May 19, 2025, 1513 hours INDICATIONS: Diagnosis advanced maternal age Technique: Multiple transabdominal sonographic images of the pelvis abdomen obtained. Attention is directed to the breathing movement, gross body movement, amniotic fluid volume and tone. Findings: Amniotic fluid index 13.3 cm Total biophysical profile is 8 of 8. breathing movement is 2. Gross body movement is 2. tone is 2. Qualitative amniotic fluid volume is 2 Impression: Biophysical profile is 8 of 8.
[2025-05-19 15:41] VITALS: BP 115/74; PULSE 95; RESP 16
--- NOTE | 2025-05-26 15:08 | XR_ITS ---
Examination: Biophysical profile, ultrasound Date and time of exam: 05/26/2025, 3:08 p.m. INDICATION: AMA COMPARISON: Pelvic ultrasound 05/19/2025 Technique: Multiple transabdominal sonographic images of the pelvis abdomen obtained. Attention is directed to the breathing movement, gross body movement, amniotic fluid volume and tone. Findings: Single live IUP in cephalic position Total biophysical profile is 8 of 8. breathing movement is 2. Gross body movement is 2. tone is 2. Qualitative amniotic fluid volume is 2 SARAH = 10.9 cm. FHR = 135 bpm. Impression: Biophysical profile is 8 of 8.
[2025-05-26 15:46] VITALS: BP 130/77; PULSE 93; RESP 16; TEMP 36.8
--- NOTE | 2025-06-03 13:38 | XR_ITS ---
Examination: Biophysical profile, ultrasound Date and time of exam: June 03, 2025, 1332 hours INDICATIONS: Diagnosis advanced maternal age Technique: Multiple transabdominal sonographic images of the pelvis abdomen obtained. Attention is directed to the breathing movement, gross body movement, amniotic fluid volume and tone. Findings: Amniotic fluid index 11.9 cm Total biophysical profile is 8 of 8. breathing movement is 2. Gross body movement is 2. tone is 2. Qualitative amniotic fluid volume is 2 Impression: Biophysical profile is 8 of 8.
[2025-06-03 14:36] VITALS: BP 116/72; PULSE 89; RESP 16; TEMP 36.7
--- NOTE | 2025-06-09 14:51 | XR_ITS ---
Examination: Biophysical profile, ultrasound Date and time of exam: June 09, 2025, 1455 hours Diagnosis advanced maternal age Technique: Multiple transabdominal sonographic images of the pelvis abdomen obtained. Attention is directed to the breathing movement, gross body movement, amniotic fluid volume and tone. Findings: Amniotic fluid index 7.7 cm Total biophysical profile is 8 of 8. breathing movement is 2. Gross body movement is 2. tone is 2. Qualitative amniotic fluid volume is 2 Impression: Biophysical profile is 8 of 8.
[2025-06-09 15:47] VITALS: BP 112/77; PULSE 83; RESP 18; TEMP 36.7
--- NOTE | 2025-06-11 11:19 | PC.NURSE ---
LATE ENTRY: PT HAD CALLED EARLIER ASKING FOR BED AVAILABILITY FOR IOL, INFORMED PT OF NO BEDS AVAILABLE, EDUCATED ON KICK COUNT AND LABOR PRECAUTIONS, WILL CALL ONCE BED BECOMES AVAILABLE, PT VERBALIZED UNDERSTANDING
== END 2025-06-09 23:59 | disposition home or self-care (01) ==
LOC: S4S1 14:35
PROVIDERS: Referring Provider Advanced Practice Midwife; Visit Provider Advanced Practice Midwife
DX: O09.93 Supervision of high risk pregnancy, unspecified, third trimester (principal); O09.813 Supervision of pregnancy resulting from assisted reproductive technology, third trimester; O09.523 Supervision of elderly multigravida, third trimester; Z3A.39 39 weeks gestation of pregnancy
CPT/HCPCS: 59025; 76819

== ENCOUNTER 2025-06-11 22:13 | Inpatient (IN) | payer OTHER, SELFPAY ==
--- NOTE | 2025-06-10 15:06 | PC.NURSE ---
PT ON PHONE, ASKING FOR BED AVAILABILITY FOR IOL, INFORMED OF NO BED AVAILABLE AT THIS TIME, EDUCATED ON KICK COUNT AND LABOR PRECAUTIONS, WILL CALL ONCE BED BECOMES AVAILABLE, PT VERBALIZED UNDERSTANDING LATE ENTRY: PT HAD CALLED EARLIER IN MORNING ASKING FOR BED AVAILABILITY FOR IOL, INFORMED PT OF NO BED AVAILABLE FOR IOL, WILL CALL ONCE BED BECOMES AVAILABLE, EDUCATED ON KICK COUNT AND LABOR PRECAUTIONS, PT VERBALIZED UNDERSTANDING
[2025-06-11 22:19] VITALS: BMI 33.8
[2025-06-11 22:29] VITALS: BP 116/75; PULSE 100
[2025-06-11 22:47] LABS: Basophils # (Auto) 0.0 Thou/mm3 (0.0-0.2); Basophils % (Auto) 0 % (0-2.5); Eosinophils # (Auto) 0.1 Thou/mm3 (0.0-0.5); Eosinophils % (Auto) 1 % (0-10); Hematocrit 37.1 % (36.0-46.0); Hemoglobin 12.6 g/dL (12.0-16.0); Immature Granulocytes Auto 0.03 Thou/mm3 (0.00-0.00); Lymphocytes # (Auto) 1.4 Thou/mm3 (1.0-4.8); Lymphocytes % (Auto) 14 % (10-50); Mean Corpuscular HGB Conc 34.0 g/dl (31.0-37.0); Mean Corpuscular Hemoglobin 30.4 pg (25.0-35.0); Mean Corpuscular Volume 89 fL (80-100); Monocytes # (Auto) 1.3 Thou/mm3 (0.0-0.8); Monocytes % (Auto) 12 % (0-12); Neutrophils # (Auto) 7.5 Thou/mm3 (1.8-7.7); Neutrophils % (Auto) 72 % (37-80); Nucleated Red Blood Cell # 0.00 Thou/mm3 (0.00-0.00); Nucleated Red Blood Cell % 0 /100 WBC (0); Platelet Count 216 Thou/mm3 (140-440); RDW Standard Deviation 42.5 fL (36.4-46.3); Red Blood Count 4.15 Miln/mm3 (4.00-5.20); White Blood Count 10.4 Thou/mm3 (3.6-11.0)
[2025-06-11 22:58] LABS: Amphetamine/Metham Scrn,Ur OB Negative (Negative); Benzoylecgonine Screen, Ur OB Negative (Negative); Opiate Screen,Urine OB Negative (Negative); THC Screen,Urine OB Negative (Negative)
[2025-06-11 23:36] LABS: Syphilis Nonreactive (Nonreactive)
[2025-06-12] VITALS (191 sets, daily range): BP systolic 83–133; BP diastolic 46–82; PULSE 64–139; RESP 16–19; TEMP 36.7–38.1; O2SAT 87–100
--- NOTE | 2025-06-12 | XR_ITS ---
Examination: Complete OB ultrasound greater than 14 weeks Date and time of exam: June 12, 2025, 0021 hours INDICATIONS: Preop examination for labor induction Findings: Viable intrauterine single fetus with single amniotic sac presentation cephalic Cardiac motion 120 bpm Placenta anterior grade 3 Umbilical cord insertion seen Amniotic fluid index 5.2 cm Cervix 5.5 cm Ovaries obscured by bowel gas. Composite estimated gestational age based on BPD, head circumference, abdominal circumference, femur length is 39 weeks 1 day Estimated weight 3745 g. Survey of intracranial anatomy, spinal anatomy, abdominal anatomy, four-chamber heart performed with no abnormalities identified. Impression: Viable intrauterine gestation cephalic presentation.
--- NOTE | 2025-06-12 01:58 | PRELIM_ITS ---
Obstetric ultrasound with Doppler. June 12, 2025 0021 hours Clinical history: Presentation, EFW. Comparison: None available at the time of this report. Findings: There is a gravid uterus with a live fetus in cephalic presentation of mean gestational age 39 weeks and 1 days (by biometry). cardiac activity is present at a heart rate of 120 beats per minute. The placenta is anterior in location, maturity grade 3. There is no evidence of placenta previa or retroplacental hemorrhage. Amniotic fluid is adequate (SARAH = 5.2 cm). Estimated weight is 3745 grams+/- 554 grams. No abnormalities by Doppler. The ovaries were not visualized. The cervix measures 5.5 cm, closed. Impression: Gravid uterus with a single live fetus in cephalic presentation of mean gestational age 39 weeks 1 days. Estimated weight is 3745 grams+/- 554 grams. Report Electronically Signed By: Shahzad Day 06/12/2025 1:58:07 AM [EST]
[2025-06-12] MEDS: RINGERS LACTATED 1000 ML 1,000 ML 100 ML IV (07:15)
--- NOTE | 2025-06-12 08:20 | PD.LDHP ---
Documentation for date of: 06/12/25 OB Labor/Induct. HPI History of Present Illness Chief complaint: IOL : 5 Para: 3 Term pregnancies: 3 pregnancies: 0 Living children: 3 History of Abortions: Spontaneous and Elective: 1 History of Vaginal deliveries: 3 History of sections: No History of : No Date of last menstrual period: 08/27/24 TIM: 06/16/25 Gestational Age (weeks): 39 Gestational Age (days): 3 Gestational age based on last menstrual period: 41 History of present illness: 39-year-old 5 para 3 at 39 weeks 3 admitted for induction. 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 transfer from Dr Hernandez at 34 week. Denies social habits. Denies surgery. Denies chronic illness. Patient's last period September 16, 2024. That puts her due date is June 23, 2025 however because of the surrogacy and timing of implantation, she had a 18-week ultrasound on January 19, 2025 and this changed to EDC to June 16, 2025. Patient is A+, antibody screen negative, RPR nonreactive, rubella immune, hepatitis B negative, hep C negative, HIV negative, GC and Chlamydia were both negative. Her GBS negative. NIPT carrier screens all negative. She had abnormal 1 hour GTT and her 3-hour was normal. Her GBS is negative. Patient has had several ultrasound at [facility] because of surrogacy and AMA History of Present Dating criteria: LMP confirmed by 2nd trimester US Ultrasounds: normal 1st trimester US and normal mid trimester US Obstetrical complications: none Medical complications: none Labs Labs: Negative: RPR, Hepatitis B, Rubella Titre, HIV, Chlamydia, Gonorrhea and Group Beta Strep and Unknown: Herpes Type 1, Herpes Type 2 and Covid-19 Review of Systems Review of Systems Systems Reviewed: All systems reviewed, normal except as documented Past Medical History Surgical History SURGICAL: Negative Section Meds Home Medications and Allergies Home Medications ?Medication ?Instructions ?Recorded ?Confirmed ?Type aspirin 81 mg tablet,delayed 81 mg PO QDAY 04/11/25 06/11/25 History release vits no.130-ferrous fum 1 tab PO QDAY 04/11/25 06/11/25 History 27 mg iron-folic acid 800 mcg tablet ( Vitamin) Allergies Allergy/AdvReac Type Severity Reaction Status Date / Time No Known Allergies Allergy Verified 06/11/25 23:08 OB Exam Physical Exam Vital signs: Temp Pulse Resp BP Pulse Ox 98.2 F 90 16 103/56 L 98 06/12/25 00:55 06/12/25 08:14 06/12/25 00:55 06/12/25 08:14 06/12/25 08:15 Narrative: Normal heart rate and rhythm. Lungs clear no wheezes. Gravid abdomen. Gynecoid pelvis. Estimated weight 8-1/2 pounds. Vaginal examination was long, 1, -3/-4, posterior. Vertex. heart rate category 1 with accelerations and moderate variability. Occasional contractions Detailed Labor and Delivery Exam Dilation (cm): 1 Effacement (%): thick Cervix position: posterior station: -3 Consistency: medium Presentation: Vertex Cervical ripeness score: 3 Membranes: intact Baseline heart rate: 145 monitor accelerations: 15x15 monitor decelerations: None half-way variability: Moderate (11-25) Contraction frequency (min): occ Contraction duration (sec): mild Tachysystole: No Contraction intensity: Mild OB Results Labs 06/11/25 22:35 Labs: Short CBC 06/11/25 Range/Units 22:35 WBC 10.4 (3.6-11.0) Thou/mm3 Hgb 12.6 (12.0-16.0) g/dL Hct 37.1 (36.0-46.0) % Plt Count 216 (140-440) Thou/mm3 OB Assessment & Plan Assessment and Plan (1) Normal labor and delivery: Status: Acute Additional Plan Induction method: per misoprostol protocol Plan: induction, anticipate NVD and consult MD daly
--- NOTE | 2025-06-12 08:26 | PD.LDPN ---
Documentation for date of: 06/12/25 OB Labor Progress Note Pain Control Pain control: tolerating well and epidural Pelvic Exam Dilation (cm): 4 Effacement (%): 70 station: -3 Amniotic membrane status: Ruptured Contractions Monitor mode: External Contraction frequency: 2-3 Contraction duration: 40 Contraction pattern: Tetanic Contraction intensity: Mild Status status: Category ll Comments: occ variable, occ late Assessment and Plan Assessment: induction ongoing Plan OB labor note: begin Pitocin augmentation CNM Management MD Consulted (describe details below): Yes History of Present Illness HPI 39-year-old 5 para 3 at 39 weeks 3 admitted for induction. 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 transfer from Dr Hernandez at 34 week. Denies social habits. Denies surgery. Denies chronic illness. Patient's last period September 16, 2024. That puts her due date is June 23, 2025 however because of the surrogacy and timing of implantation, she had a 18-week ultrasound on January 19, 2025 and this changed to EDC to June 16, 2025. Patient is A+, antibody screen negative, RPR nonreactive, rubella immune, hepatitis B negative, hep C negative, HIV negative, GC and Chlamydia were both negative. Her GBS negative. NIPT carrier screens all negative. She had abnormal 1 hour GTT and her 3-hour was normal. Her GBS is negative. Patient has had several ultrasound at [facility] because of surrogacy and AMA
[2025-06-12] MEDS: MINERAL OIL 30 ML UDC TOP (17:32)
[2025-06-12] MEDS: OXYTOCIN INJ 10 UNIT/ML VIAL IM (17:38)
[2025-06-12] MEDS: OXYTOCIN in NS 20 units 20 UNIT/1,000 ML BAG 125 UNIT IV (17:40)
[2025-06-12] MEDS: TRANEXAMIC ACID 1,000 MG IVPB 1,000 MG/100 ML BAG 200 MG IV (17:44)
[2025-06-12] MEDS: ACETAMINOPHEN IVPB 1,000 MG/100 ML VIAL 250 MG IV (18:21)
--- NOTE | 2025-06-12 18:21 | PD.LDDELS ---
Data (Isabel) Data Hx Section: No : 5 Term: 3 : 0 Livin Abortions: Spontaneous & Theraputic: 1 Delivery Data (Isabel) Labor Data Initiation of labor: Induction Induction/Augmentation Agent: Cervidil ROM date: 06/12/25 ROM time: 05:49 Amniotic membrane rupture type: Spontaneous Amniotic fluid description: Clear Delivery Data EDC: 06/23/25 EDC calculated by:: LMP/early US confirmation Date of arrival to unit: 06/11/25 Time of arrival to unit: 22:13 Onset of labor date: 06/12/25 Onset of labor time: 07:45 Complete dilation date: 06/12/25 Complete dilation time: 17:30 delivery date: 06/12/25 delivery time: 17:34 Gestational age (weeks): 39 Gestational age (days): 3 Placenta delivery date: 06/12/25 Placenta delivery time: 17:39 Stage 1 total time: Labor - Stage 1 Duration 9 hours and 45 minutes Delivered by: Jess Delvalle Delivery nurse: susan Cervantes nurse: herminio Assistant Chief [employer] at delivery: Yes Support person(s) at delivery: spouse Delivery Method Delivery method: Normal Vaginal Delivery Presentation: Vertex position: OA Anesthesia Type Anesthesia Type: Epidural Delivery Room Medications Delivery room medications: Pitocin 10 u IM, Pitocin 20 u IV, Cytotec 800 MO and other (TXA) Placenta Placenta delivery description: Spontaneous (inspected, intact) cord blood collection: Cord Blood Type Episiotomy Episiotomy description: None Lacerations #1: Vaginal: 1st degree (small vag) Perineal repair Sutures used for repair: 3.0 Chromic EBL Estimated blood loss (ml): 400 Umbilical Cord cord description: 3 Vessels [place] Data (Isabel) Data order: 1 's gender: Male weight (gms): 3530 g Weight (pounds): 7 lbs and 12.5 ozs 1 minute: 8 5 minutes: 9
[2025-06-12] MEDS: ceFAZolin/D5W 2 GM IV 2 GM/100 ML BAG IV (18:56)
[2025-06-12] MEDS: IBUPROFEN TAB 400 MG TABLET 800 MG PO (18:57)
[2025-06-12] MEDS: DOCUSATE SOD 100 MG CAPSULE PO (21:11)
[2025-06-13 00:25] VITALS: BP 95/55; PULSE 75; RESP 18; TEMP 37.3; O2SAT 96
[2025-06-13 03:04] LABS: Basophils # (Auto) 0.0 Thou/mm3 (0.0-0.2); Basophils % (Auto) 0 % (0-2.5); Eosinophils # (Auto) 0.1 Thou/mm3 (0.0-0.5); Eosinophils % (Auto) 0 % (0-10); Hematocrit 36.1 % (36.0-46.0); Hemoglobin 12.2 g/dL (12.0-16.0); Immature Granulocytes Auto 0.09 Thou/mm3 (0.00-0.00); Lymphocytes # (Auto) 2.4 Thou/mm3 (1.0-4.8); Lymphocytes % (Auto) 13 % (10-50); Mean Corpuscular HGB Conc 33.8 g/dl (31.0-37.0); Mean Corpuscular Hemoglobin 30.5 pg (25.0-35.0); Mean Corpuscular Volume 90 fL (80-100); Monocytes # (Auto) 1.5 Thou/mm3 (0.0-0.8); Monocytes % (Auto) 8 % (0-12); Neutrophils # (Auto) 13.5 Thou/mm3 (1.8-7.7); Neutrophils % (Auto) 77 % (37-80); Nucleated Red Blood Cell # 0.00 Thou/mm3 (0.00-0.00); Nucleated Red Blood Cell % 0 /100 WBC (0); Platelet Count 177 Thou/mm3 (140-440); RDW Standard Deviation 43.3 fL (36.4-46.3); Red Blood Count 4.00 Miln/mm3 (4.00-5.20); White Blood Count 17.5 Thou/mm3 (3.6-11.0)
[2025-06-13 03:40] VITALS: BP 100/61; PULSE 75; RESP 18; TEMP 36.7; O2SAT 97
[2025-06-13] MEDS: ceFAZolin/D5W 2 GM IV 2 GM/100 ML BAG IV (03:49)
[2025-06-13] MEDS: ACETAMINOPHEN 325 MG TABLET 650 MG PO (03:49)
[2025-06-13] MEDS: DOCUSATE SOD 100 MG CAPSULE PO (08:16)
[2025-06-13] MEDS: IBUPROFEN TAB 400 MG TABLET 800 MG PO (08:23)
--- NOTE | 2025-06-13 09:59 | PC.NURSE ---
Ejss at bedside evaluating post op pt. Per Jess continue with discharge at this time no new orders given. Pt stable and medically clear.
--- NOTE | 2025-06-13 09:59 | PD.LDPPPRG ---
Subjective Subjective Interval history: No complaints of pain. No dizziness. Point voiding. No signs or symptoms of infection Exam Vital Signs Temp Pulse Resp BP Pulse Ox 98.1 F 75 18 100/61 97 06/13/25 03:40 06/13/25 03:40 06/13/25 03:40 06/13/25 03:40 06/13/25 03:40 Narrative Exam Vital signs are stable afebrile. Breasts are soft. Fundus firm below the umbilicus. Perineum is intact no swelling. Small lochia. Negative Homans' sign. 2+ DTRs Objective Labs 06/13/25 02:54 Labs: Laboratory Results - last 24 hr 06/13/25 02:54 WBC 17.5 H D RBC 4.00 Hgb 12.2 Hct 36.1 MCV 90 MCH 30.5 MCHC 33.8 RDW Std Deviation 43.3 Plt Count 177 D Neut % (Auto) 77 Lymph % (Auto) 13 [place] % (Auto) 8 Eos % (Auto) 0 Baso % (Auto) 0 Neut # (Auto) 13.5 H Lymph # (Auto) 2.4 [place] # (Auto) 1.5 H Eos # (Auto) 0.1 Baso # (Auto) 0.0 Immature Gran # (Auto) 0.09 H Absolute Nucleated RBC 0.00 Immature Gran % 1 H Nucleated RBC % 0 Assessment & Plan Problem List (1) Normal labor and delivery: Status: Acute Assessment Comment Assessment comment: 24 hr pp Plan Comment Plan Comment: Discharge home today. Continue vitamins and Tylenol and ibuprofen. Discussed danger signs symptoms and ER precautions. Discussed signs and symptoms of infection. Patient to make an appointment in 3 weeks for follow-up Time Spent With Patient Time: Total time spent is greater than 50% in coordination of care (as documented) at patient's floor/unit and/or counseling patient:
--- NOTE | 2025-06-13 10:01 | PD.LDDS ---
DS: Providers Provider Date of admission: 06/11/25 22:13 Primary care physician: Physician No Primary/Family Admitting Provider: Jess Delvalle CNM Attending Provider on Admission: Rachell Pfeiffer MD Consults: 06/12/25 18:44 Referral Routine Comment: Attending Provider on DC: Jess Delvalle CNM Discharging Provider: Jess Delvalle CNM DS: Diagnosis Problem List Completed Was Problem List Reviewed/Reconciled?: Yes Summary/Hosp Course Brief History: 39-year-old 5 para 3 at 39 weeks 3 admitted for induction. 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 transfer from Dr Hernandez at 34 week. Denies social habits. Denies surgery. Denies chronic illness. Patient's last period September 16, 2024. That puts her due date is June 23, 2025 however because of the surrogacy and timing of implantation, she had a 18-week ultrasound on January 19, 2025 and this changed to EDC to June 16, 2025. Patient is A+, antibody screen negative, RPR nonreactive, rubella immune, hepatitis B negative, hep C negative, HIV negative, GC and Chlamydia were both negative. Her GBS negative. NIPT carrier screens all negative. She had abnormal 1 hour GTT and her 3-hour was normal. Her GBS is negative. Patient has had several ultrasound at [facility] because of surrogacy and AMA Peripartum Data Delivery Method: Normal Vaginal Delivery Episiotomy Description: None Laceration Description: yes (small vag tear) complications: none Time Spent with Patient Time attestation: Total time spent providing and/or coordinating discharge services: Exam Vital Signs Temp Pulse Resp BP Pulse Ox 98.1 F 75 18 100/61 97 06/13/25 03:40 06/13/25 03:40 06/13/25 03:40 06/13/25 03:40 06/13/25 03:40 Discharge Plan Plan Patient Disposition: HOME (Self Care) Patient condition on transfer: Stable Prescriptions/Referrals Prescriptions/Med Rec: No Action aspirin 81 mg tablet,delayed release (DR/EC) 81 mg PO QDAY Patient Comments: TAKE 1 TABLET BY MOUTH EVERY DAY Vitamin 27 mg iron- 800 mcg tablet 1 tab PO QDAY Referrals: No Primary/Family,Physician [Primary Care Provider] Patient/Caregiver Discharge Instructions Meds to Beds: No Discharge Activity: resume usual activities Print Language: Malay Activity Restrictions/Additional Instructions: Discharge home today. Continue vitamins. Tylenol or ibuprofen for pain. Discussed danger signs symptoms and ER precautions. Discussed signs symptoms of infection. Return in 3 to 4 weeks clinic for follow-up Stand Alone Forms: Pattie Award Info., Patient Portal Info Letter Discharge Order Discharge Orders: Discharge (Routine); Ordered 06/13/25 Ordered By: Jess Delvalle Planned Discharge Date 06/13/25
--- NOTE | 2025-06-13 10:20 | PC.NURSE ---
Dominique ss seen pt per Dominique pt is clear to discharge.
--- NOTE | 2025-06-13 11:05 | PC.SS ---
Social service referral was made due to late to care. Upon SS following up, the patient denied being late to care, patient reports she was receiving OB services following IVF in [place] and was transferred to Dr. Davies at 10 Weeks. However was transferred with Jess Delvalle after by Dr. Davies. Patient reports she has three biological children. SS updated patient's nurse Betsy. At this time there are no further needs identified. No need for referral after patient clarifying she was not late to care. SS will stand by for further needs.
== END 2025-06-13 11:18 | disposition home or self-care (01) | DRG 807 ==
LOC: S4SX 06-12 13:29 → S4NX 06-12 19:58
PROVIDERS: Admitting Provider Advanced Practice Midwife; Visit Provider Obstetrics & Gynecology
DX: O70.0 First degree perineal laceration during delivery (principal); Z37.0 Single live birth; Z3A.39 39 weeks gestation of pregnancy; Z33.3 Pregnant state, gestational carrier
CPT/HCPCS: 36415; 76805; 80307; 85025; 86780; 86850; 86900; 86901; 94762; J0131; J0689; J2590; J2795; J3010; J3490; J7120; S0191; A9270

== ENCOUNTER 2025-06-13 21:20 | Emergency (ER) | payer OTHER, SELFPAY ==
[2025-06-13 21:21] VITALS: BMI 31.8
[2025-06-13 21:31] VITALS: BP 127/84; PULSE 84; RESP 19; TEMP 36.4; O2SAT 97
--- NOTE | 2025-06-13 21:46 | XR_ITS ---
Examination: Pelvic ultrasound, transabdominal, complete Technique: Transabdominal ultrasound of the pelvis performed using grayscale imaging Date and time of exam: June 13, 2025, 1015 hours INDICATIONS: Patient states uterine prolapse with bulging sensation weeks FINDINGS: Uterus 12.0 cm Heterogeneous endometrium in the lower uterine segment, measuring 12 mm No intrauterine gestation or uterine mass Right ovary 3.7 cm arterial flow Left ovary 3.3 cm arterial flow IMPRESSION: Mildly heterogeneous endometrium in the lower uterine segment, clinical correlation advised Consider follow-up transvaginal pelvic sonography to best assess the endometrium
--- NOTE | 2025-06-13 21:47 | PD.EDRME ---
Rapid Medical Screening Exam RME Arrival date/time: 06/13/25 21:20 This is a case of 39-year-old female with no medical history came in in the emergency room due to vaginal pain possible vaginal prolapse stated that something coming out to her vagina patient just gave vaginally yesterday no vaginal bleeding no vaginal discharge Chief Complaint: Urogenital-Female Time Seen by Provider: 06/13/25 21:38 Vital signs: Vital Signs Temperature 97.5 F 06/13/25 21:31 Pulse Rate 84 06/13/25 21:31 Respiratory Rate 19 06/13/25 21:31 Blood Pressure 127/84 06/13/25 21:31 Pulse Oximetry (%) 97 06/13/25 21:31 Oxygen Delivery Method Room Air 06/13/25 21:31 Exam: Abdominal exam is benign nonsurgical no guarding no rebound no rigidity Clinical Impression: Vaginal pain
[2025-06-13 22:21] LABS: Basophils # (Auto) 0.0 Thou/mm3 (0.0-0.2); Basophils % (Auto) 0 % (0-2.5); Eosinophils # (Auto) 0.2 Thou/mm3 (0.0-0.5); Eosinophils % (Auto) 1 % (0-10); Hematocrit 37.9 % (36.0-46.0); Hemoglobin 12.8 g/dL (12.0-16.0); Immature Granulocytes Auto 0.08 Thou/mm3 (0.00-0.00); Lymphocytes # (Auto) 3.2 Thou/mm3 (1.0-4.8); Lymphocytes % (Auto) 20 % (10-50); Mean Corpuscular HGB Conc 33.8 g/dl (31.0-37.0); Mean Corpuscular Hemoglobin 30.9 pg (25.0-35.0); Mean Corpuscular Volume 92 fL (80-100); Monocytes # (Auto) 1.2 Thou/mm3 (0.0-0.8); Monocytes % (Auto) 7 % (0-12); Neutrophils # (Auto) 11.6 Thou/mm3 (1.8-7.7); Neutrophils % (Auto) 71 % (37-80); Nucleated Red Blood Cell # 0.00 Thou/mm3 (0.00-0.00); Nucleated Red Blood Cell % 0 /100 WBC (0); Platelet Count 208 Thou/mm3 (140-440); RDW Standard Deviation 44.5 fL (36.4-46.3); Red Blood Count 4.14 Miln/mm3 (4.00-5.20); White Blood Count 16.4 Thou/mm3 (3.6-11.0)
[2025-06-13 22:37] LABS: Sodium 144 mMol/L (136-145)
[2025-06-13 22:38] LABS: Alanine Aminotransferase 9 U/L (10-49); Albumin, Serum 3.4 gm/dL (3.5-5.0); Albumin/Globulin Ratio 1.3 (1.2-2.2); Alkaline Phosphatase 103 U/L (46-116); Anion Gap 10 (7-16); Aspartate Amino Transferase 22 U/L (0-34); BUN/Creatinine Ratio 7 Ratio (12-20); Bilirubin,Total 0.2 mg/dL (0.3-1.2); Blood Urea Nitrogen 5 mg/dL (9-23); Calcium 9.0 mg/dL (8.3-10.6); Calcium (Corrected) 9.5 mg/dL (8.5-10.1); Carbon Dioxide 25.5 mMol/L (20.0-31.0); Chloride 109 mMol/L (98-107); Creatinine (Component) 0.7 mg/dL (0.6-1.3); Estimated Creatinine Clearance 111.3 mL/min (>60); Globulin 2.6 gm/dL (2.3-3.5); Glucose 93 mg/dL (74-106); Osmolality,Calculated 284 (275-295); Potassium 3.8 mMol/L (3.4-5.1); Total Protein 6.0 gm/dL (5.7-8.2); eGFR > 60 See Note
[2025-06-13 22:42] LABS: Collection Type, Urine Clean Catch
[2025-06-13 22:54] LABS: Bilirubin,Urine Negative (Negative); Blood,Urine 3+ (Negative); Clarity,Urine Clear (Clear/Hazy); Color,Urine Lt-Yellow (Lt Yel-Yel); Glucose, Urine 1+ (Negative); Ketones,Urine Negative (Negative); Leukocyte Esterase,Urine Positive (Negative); Nitrite,Urine Negative (Negative); PH,Urine 6.0 (5.0-7.0); Protein,Urine Negative (Neg - Trace); RBC,Urine 282 /hpf (0-3); Specific Gravity,Urine 1.011 (1.001-1.035); Squamous Epithelial Cell,Urine 1 /hpf (0-5); Urobilinogen,Urine Negative mg/dL (0.0-1.0); WBC,Urine 8 /hpf (0-5)
--- NOTE | 2025-06-13 22:54 | PD.EDFMALE ---
ED Female Urogenital RME/HPI General Chief complaint: Urogenital-Female Stated complaint: POSSIBLE UTERINE PROLASPE, GAVE YESTERDAY Time Seen by Provider: 06/13/25 21:38 Arrival date/time: 06/13/25 21:20 RME / HPI RME / HPI Narrative: 06/13/25 21:20 This is a case of 39-year-old female with no medical history came in in the emergency room due to vaginal pain possible vaginal prolapse stated that something coming out to her vagina patient just gave vaginally yesterday no vaginal bleeding no vaginal discharge DR. DEL ROSARIO MAIN ED EVALUATION: Patient induced at-term with vaginal delivery ? episiotomy on 06/13/2025 and who following a bowel movement this evening suspected uterine vsbladder prolapse c/o pelvic pressure. No fever, chills, vomiting, or diarrhea. PMH: Hemorrhoids PSH: Tubal Ligation, Cosmetic Surgery Allergies: NKDA Social: Negative Exam: Abdominal exam is benign nonsurgical no guarding no rebound no rigidity Impression: Vaginal pain Related Data Home Medications ?Medication ?Instructions ?Recorded ?Confirmed aspirin 81 mg tablet,delayed 81 mg PO QDAY 04/11/25 06/11/25 release vits no.130-ferrous fum 1 tab PO QDAY 04/11/25 06/11/25 27 mg iron-folic acid 800 mcg tablet ( Vitamin) Allergies Allergy/AdvReac Type Severity Reaction Status Date / Time No Known Allergies Allergy Verified 06/13/25 21:21 Review of Systems Review of Systems Systems Reviewed: All systems reviewed, normal except as documented Past Medical History Past Medical History GASTROINTESTINAL: Positive Hemorrhoids Surgical History SURGICAL: Positive Tubal Ligation OTHER SURGICAL HX: Cosmetic ED Exam Narrative Physical exam: GEN. APPEARANCE: The patient is alert awake oriented X-3 under no distress, lying down comfortably, does not look ill/toxic. Patient has good eye contact. Patient is cooperative. VITALS: All vitals were reviewed and the pulse ox is 97%, which is normal according to my interpretation HEENT: Normocephalic, atraumatic and nontender. Pupils are equal and reactive. Oral mucosa is moist. NECK: Supple, nontender, no meningismus, no JVD. There is no thyromegaly and no lymphadenopathy. CHEST: Nontender on palpation no deformity and no crepitus. CARDIOVASCULAR: Heart regular rhythm, no murmur or gallop rub or extra beats. LUNGS: Clear to auscultation bilaterally with symmetrical chest rise. No laboring tachypnea or wheezing. No intercostal subcostal retraction. No rales and no rhonchi. ABDOMEN: Soft, flat, nontender to palpation, no guarding or rebound tenderness. There are no abnormal masses palpated. No pulsatile masses or bruits. Active and normal bowel sounds. PELVIIC VIA SPECULUM:Ecchymotic discolored uterus just beyond introitus, slight hemorrhage from previously repaired vaginal laceration EXTREMITIES: Normal inspection and palpation. No edema. No cyanosis. Patient is able to move all 4 extremities well SKIN: Warm and dry, no rashes noted. MUSCULOSKELETAL: No lumbar or midline bony tenderness. There is no CVA tenderness. No paraspinal muscle spasm or tenderness. NEURO: Cranial nerves II through XII grossly intact. There are no focal neurologic deficits noted. GCS is 15 PSYCHIATRIC: Patient is in normal mood and affect, cooperative. LYMPHATICS: No major lymphadenopathy noted. Course Quality Measures none Orders Category Date Time Status US pelvic complete Stat Exams 06/13/25 21:46 Completed CBC Stat Lab 06/13/25 22:00 Completed Comprehensive Metabolic Panel Stat Lab 06/13/25 22:00 Completed HCG Qualitative,Urine Stat Lab 06/13/25 22:18 Completed Urinalysis Stat Lab 06/13/25 22:18 Completed Vital Signs Vital signs: Vital Signs Temperature 97.5 F 06/13/25 21:31 Pulse Rate 84 06/13/25 21:31 Respiratory Rate 19 06/13/25 21:31 Blood Pressure 127/84 06/13/25 21:31 Pulse Oximetry (%) 97 06/13/25 21:31 Oxygen Delivery Method Room Air 06/13/25 21:31 Urogenital - Female MDM Narrative MDM Narrative:: Scribe Attestation: Theresa Lora, courtney scribing for and in the presence of Dr. Butler. Provider Notation: Although this document has been carefully reviewed, there may still be some phonetic and other typographical errors. These errors are purely grammatical due to imperfections in the software program and should not be construed in any way to compromise the substance of the patient's medical care during this visit. Patient induced at-term with vaginal delivery ? episiotomy on 06/13/2025 and who following a bowel movement this evening suspected uterine vsbladder prolapse c/o pelvic pressure. No fever, chills, vomiting, or diarrhea. Please see PE findings. Clinical exam suggestive of slight uterine prolapse likely secondary to laxating of pelvic ligaments. Discussed with ELECTROMECHANICAL ASSEMBLY TECHNICIAN on-call and recommendations include general laxatives and close INVENTORY CONTROL MANAGER F/U. Precautionary instructions issued. Patient data External records reviewed:: [facility] previous records (No recent ED records available for review) Clinical information provided by:: patient Social determinants that could affect healthcare access:: none Patient has the following chronic illnesses:: Hemorrhoids How is presenting disease/condition affected by chronic disease/condition?: exacerbated by Evaluation data The following diagnostics were reviewed and interpreted by me:: radiology exam(s) Lab and/or radiology exams considered but not ordered:: None Interpretation Summary: RADIOLOGY Pelvic US: FINDINGS: Uterus 12.0 cm Heterogeneous endometrium in the lower uterine segment, measuring 12 mm No intrauterine gestation or uterine mass Right ovary 3.7 cm arterial flow Left ovary 3.3 cm arterial flow IMPRESSION: Mildly heterogeneous endometrium in the lower uterine segment, clinical correlation advised Consider follow-up transvaginal pelvic sonography to best assess the endometrium Medications / Prescriptions Medications or Prescriptions considered but not ordered:: None Medication administrations:: See above if any Consultations Consultation(s) initiated? (list below): Yes Consultation #1 (Physician, Specialty, Details): Dr. Capps made aware of the patient?s HPI, PMHx, lab and/or radiology results. Discussed treatment plan. Will consult an admission to the hospitalist. Time: 23:22 Diagnosis Urogenital Female Differential Diagnosis: vaginitis, cyst of Bartholin's gland, cystitis and other (pelvic organ prolapse, rectocele or enterocele, vaginal mass, urethral diverticulum, [place] duct cysts) Most likely diagnosis given after review of the tests above:: S/p Normal Vaginal Delivery Admission Indicated Admission indicated?: not indicated Explain why admission is indicated or not indicated:: Patient does not meet admission criteria Admission Request Was there a request for admission?: No Disposition Plan Disposition Plan: Discharge Discharge Attestation Discharge Attestation: The patient and all family members were given an opportunity to ask questions and understood the discharge instructions. Discharge instructions specifically effects, indications for sooner follow up or return to the emergency department, and the expected course of current diagnosis. Patient condition: Stable Discharge Plan Plan Patient Disposition: HOME (Self Care) Prescriptions/Referrals Prescriptions/Med Rec: No Action aspirin 81 mg tablet,delayed release (DR/EC) 81 mg PO QDAY Patient Comments: TAKE 1 TABLET BY MOUTH EVERY DAY Vitamin 27 mg iron- 800 mcg tablet 1 tab PO QDAY Referrals: Jess Delvalle CNM [Primary Care Provider, INVENTORY CONTROL MANAGER] - In 1 week Problem List Clinical Impression: Status post normal vaginal delivery Patient/Caregiver Discharge Instructions Print Language: Turkish Stand Alone Forms: Pattie Award Info., Patient Portal Info Letter
[2025-06-13 22:56] LABS: HCG Qualitative,Urine Positive
[2025-06-13 23:44] VITALS: BP 113/66; PULSE 58; RESP 19; TEMP 36.6; O2SAT 98
== END 2025-06-13 23:45 | disposition home or self-care (01) ==
PROVIDERS: Nurse Practitioner Family; Emergency Provider Emergency Medicine; PCP Advanced Practice Midwife
DX: Z39.0 Encounter for care and examination of mother immediately after delivery (principal)
CPT/HCPCS: 36415; 76856; 80053; 81001; 81025; 85025; 99283

== ENCOUNTER 2025-07-08 13:01 | Outpatient (AMB) | payer OTHER, SELFPAY ==
[2025-07-08 13:12] VITALS: BP 119/74; PULSE 83; RESP 18; TEMP 36.8; O2SAT 98; BMI 31.6
--- NOTE | 2025-07-08 13:12 | AMB.OBPNC ---
Vital Signs 07/08/25 13:12 Height 1.6 m Height Method Stated Weight 80.91 kg Weight Measurement Method Standing Scale BMI 31.6 BP 119/74 Blood Pressure Source Automatic Cuff Blood Pressure Location Left Upper Arm Position Sitting Respiration 18 Pulse 83 Pulse Source Monitor Temp 98.2 F Temp Source Oral Pulse Oximetry (%) 98 Oxygen Delivery Method Room Air Allergies/Home Meds Allergies & Medications Allergies No Known Allergies Allergy (Verified 07/08/25 13:13) Medication Reconciliation aspirin 81 mg tablet,delayed release 81 mg PO QDAY 04/11/25 [History Confirmed 07/08/25] vits no.130-ferrous fum 27 mg iron-folic acid 800 mcg tablet ( Vitamin) 1 tab PO QDAY 04/11/25 [History Confirmed 07/08/25] docusate sodium 100 mg capsule (Colace) 100 mg PO BID #30 caps 06/13/25 [Rx Confirmed 07/08/25] Immunizations Immunizations Flu Vaccine in the Last 12 Months: No Flu Vaccine Exclusion Criteria: Refused by Patient Care OB Visit Log OB Flowsheet Initial Weight: Not Recorded Date <del>?</del> EGA Weight BP Alb Glu CTX Pres Fundal ht FHR Mov Dilation Station Effacement Hx Notes Visit Note 04/14/25 <del>?</del> 31w 0d 79.095 kg 110/66 absent cephalic 31 145 active 39-year-old 5 para 3 for OBI. Patient is a transfer from Dr. Larsen's office with records. This is a surrogacy product . She has an TIM June 16, 2025. Just based on an 18-week ultrasound done in December. Reports good movement. Denies leaking, bleeding, contractions. The so far is been normal and no problems. She has a follow-up MFM appointment at [facility] April 28 Keep MFM appointment. Continue vitamins. Discussed labor precautions. Patient declined Tdap today. Return in 2 weeks for OB check 04/29/25 <del>?</del> 33w 1d 79.832 kg 115/73 absent cephalic 33 140 active Reports movement. Denies labor symptoms. Denies contractions, bleeding or leaking. Patient has a follow-up MFM ultrasound in 3 weeks and also echo. Return in 2 weeks. GBS next visit. Keep appointment for echo and follow-up MFM. Discussed kick count and labor precautions. Increase fluids. 05/14/25 <del>?</del> 35w 2d 81.42 kg 116/73 absent cephalic 35 145 active Fetus active. Denies contractions, leaking, bleeding GBS today. Discussed labor precautions. Kick count twice a day. Patient NST is pending. She has follow-up ultrasound in a week with MFM and return in a week for OB check 05/22/25 <del>?</del> 36w 3d 84.028 kg 122/82 absent cephalic 36 145 active No OB complaints. Reports good movement. No leaking, bleeding, contractions IOL 1 week IOL 06/10/25, patient has weekly NST BPP for AMA and surrogacy. Kick count twice a day. Discussed labor precautions return in a week OB check 06/03/25 <del>?</del> 38w 1d 84.935 kg 122/78 absent cephalic 38 145 active 1 -3 50 No OB complaints. Doing well. Fetus active denies leaking denies bleeding. Increased pressure Induction of labor scheduled for June 10. Discussed labor precautions. Kick count. Discussed danger signs symptoms return week OB to 06/08/25 <del>?</del> 38w 6d absent cephalic 38 145 active 1 -3 50 No OB complaints. Denies leaking, bleeding, contractions. Reports good movement Induction scheduled for June 10, 2025. Discussed labor precautions and kick count. Discussed danger signs symptoms return in a week for OB check TIM Calculator Estimated Delivery Date Method Current WG Current Estimate 06/16/25 Ultrasound #1 43w 1d Other Estimates 06/23/25 LMP (Certain) 42w 1d 06/09/25 Ultrasound #2 44w 1d 06/16/25 Manual 43w 1d final tim: 06/16/25 Notes Visit Date: 05/22/25 Last Updated by: Jess Delvalle CNM GBS-, sono: 05/15: 31% EFW at 35w3, umbilical vein varix Visit Date: 04/29/25 Last Updated by: Jess Delvalle CNM sono 04/28/25: IUP 33 wk. EFW 91 %, ECHO ordered for IVF/Surrogacy, Ummbilical Vein varix, focal dilation of umb vein.. Star NST wk at 36 week. .f/u mfm 2 wk Visit Date: 04/14/25 Last Updated by: Jess Delvalle CNM 39 yo . 1st OB sono: 01/19/25. IUP 18w6. TIM: !!/. A+,ABS-, rpr::nr, RUB NI, Hbsag-, hiv-, HC-, GC/CT-. UT-, NIPT,AFP,carrier screen-, 1 hr gtt eevated, 3 hr gtt: normal. A1c>: 5.6 Office Procedures OBC Clinic LOC & Office Proc's Nursing/Assessment Patient Status: Established Patient OB Clinic Nursing Assessment: Medication Reconciliation, Update PMH in EMR and Vital Signs OB Clinic Coordination of Care: Consent,records obtained, informed consent, Education Simp Pt/Fam, Lab and Imaging orders, Results/Orders obtained and Staff clarify orders Special Needs: Heart tones Established Patient Charge Established Patient Point Assignment: 110 Established Patient Point Charge: EP Level 3 (80-115) Assessment & Plan Diagnosis / Problem List (1) Routine Follow-Up: (2) 2 weeks follow-up: Status: Acute Plan Okay to diet and exercise. Note to release back to work. Continue prenatals. I advised patient to go to department to talk about milk donation and release to work. She July 27. Return for Pap in 5 years
--- NOTE | 2025-07-08 13:51 | AMBOBPPN_ITS ---
Vital Signs 07/08/25 13:12 07/08/25 13:52 Height 1.6 m Height Method Stated Weight 80.91 kg Weight Measurement Method Standing Scale BMI 31.6 BP 119/74 119/74 Blood Pressure Source Automatic Cuff Blood Pressure Location Left Upper Arm Position Sitting Respiration 18 18 Pulse 83 83 Pulse Source Monitor Temp 98.2 F 98.2 F Temp Source Oral Pulse Oximetry (%) 98 98 Oxygen Delivery Method Room Air Allergies/Home Meds Allergies & Medications Allergies No Known Allergies Allergy (Verified 07/08/25 13:13) Medication Reconciliation aspirin 81 mg tablet,delayed release 81 mg PO QDAY 04/11/25 [History Confirmed 07/08/25] vits no.130-ferrous fum 27 mg iron-folic acid 800 mcg tablet ( Vitamin) 1 tab PO QDAY 04/11/25 [History Confirmed 07/08/25] docusate sodium 100 mg capsule (Colace) 100 mg PO BID #30 caps 06/13/25 [Rx Confirmed 07/08/25] Intake Visit Data Collection New Patient or Established: Established Patient (seen at [facility] within 3 years) Reason for Visit:: PP Seen by Clinical Staff ONLY (RN/MA): No Director Corporate Sales Required: No Do You Feel Safe at Home: Yes Authorities Contacted: N/A PCP or OBGYN visit in last 3 months: Yes Date of Last PCP or OBGYN visit: 06/13/25 Hx Now: No Are you currently on any form of Control: No Pain Present Currently: No Pain Scale Used: Redman-Pereira/Numerical Pain scale:: 0 Smoking Status Smoking Status: Never smoker Immunizations Flu Vaccine in the Last 12 Months: No Flu Vaccine Exclusion Criteria: No Exclusion Criteria OUTPATIENT PHYSICAL THERAPIST: Past Medical History Past Medical History: No Hx Neurological Disorders, No Hx Cardiac Disorders, No Hx Cancer, No Hx Blood Disorders, No Hx Anemia, No Hx Gastrointestinal Disorders, No Hx Renal Disease, No Hx Diabetes Mellitus Type 1, No Hx Diabetes Mellitus Type 2 and Yes Hx Tubal Ligation Questionnaires Covid-19 Vaccine Questionnaire Has patient been vacinated for Covid-19 Have you been vacinated for Covid-19: Yes Social History Living Situation History Lives With: Family Housing: House Tobacco History Smoking Status: Never smoker Second Hand Smoke Exposure: No Alcohol History Alcohol Intake: Never Domestic Abuse History Do You Feel Safe at Home: Yes EPDS - PP Depression Screening [place] Pospartum Depression Screen I have been able to laugh and see the funny side of things: (0) As much as I always could I have looked forward with enjoyment to things: (0) As much as I ever did I have blamed myself unnecessarily when things went wrong: (0) No, never I have been anxious or worried for no good reason: (0) No, not at all I have felt scared or panicky for no very good reason: (0) No, not at all Things have been getting on top of me: (0) No, I have been coping as well as ever I have been so unhappy that I have had difficulty sleeping: (0) No, not at all I have felt sad or miserable: (0) No, not at all I have been so unhappy that I have been crying: (0) No, never The thought of harming myself has occurred to me: (0) Never Total Score: EPDS Score: Referral is indicated for score of 9 or more, suicidal, or if provider believes patient is depressed regardless of score.: 0 EPDS completed yes Care OB Visit Log OB Flowsheet Initial Weight: Not Recorded Date -?-?-?-?-?-?-?-?-?-?-?-?- EGA Weight BP Alb Glu CTX Pres Fundal ht FHR Mov Dilation Station Effacement Hx Notes Visit Note 04/14/25 -?-?-?-?-?-?-?-?-?-?-?-?- 31w 0d 79.095 kg 110/66 absent cephalic 31 145 active 39-year-old 5 para 3 for OBI. Patient is a transfer from Dr. Larsen's office with records. This is a surrogacy product . She has an TIM June 16, 2025. Just based on an 18-week ultrasound done in December. Reports good moveme nt. Denies leaking, bleeding, contractions. The so far is been normal and no problems. She has a follow-up MFM appointment at [facility] April 28 Keep MFM ap pointment. Continue vitamins. Discussed labor precautions. Patient declined Tdap today. Return in 2 weeks for OB check 04/29/25 -?-?-?-?-?-?-?-?-?-?-?-?- 33w 1d 79.832 kg 115/73 absent cephalic 33 140 active Reports movement. Denies labor symptoms. Denies contractions, bleeding or leaking. Patient has a follow-up MFM ultrasound in 3 weeks and also echo. Return in 2 week s. GBS next visit. Keep appointment for echo and follow- up MFM. Discussed kick count and labor precautions. Increase fluids. 05/14/25 -?-?-?-?-?-?-?-?-?-?-?-?- 35w 2d 81.42 kg 116/73 absent cephalic 35 145 active Fetus active. Denies contractions, leaking, bleeding GBS today. Discussed labor precautions. Kick count twice a day. Patient NST is pending. She has follow-up ultrasound in a week with MFM and return in a week for OB check 05/22/25 -?-?-?-?-?-?-?-?-?-?-?-?- 36w 3d 84.028 kg 122/82 absent cephalic 36 145 active No OB complaints. Reports good movement. No leaking, bleeding, contractions IOL 1 week IOL 06/10/25, patient has we ekly NST BPP for AMA and surrogacy. Kick count twice a day. Discussed labor precautions return in a week OB check 06/03/25 -?-?-?-?--?-?-?-?-?-?-?-?- 38w 1d 84.935 kg 122/78 absent cephalic 38 145 active 1 -3 50 No OB complaints. Doing well. Fetus active denies leaking denies bleeding. Increased pressure Induction of labor scheduled for June 10. Discussed labor precautions. Kick count. Discussed danger signs symptoms return week OB to 06/08/25 -?-?-?-?-?-?-?-?-?--?-?-?- 38w 6d absent cephalic 38 145 active 1 -3 50 No OB complaints. Denies leaking, bleeding, contractions. Reports good movement Induction scheduled for June 10, 2025. Discussed labor precautions and kick count. Discussed danger signs symptoms return in a week for OB check TIM Calculator Estimated Delivery Date Method Current WG Current Estimate 06/16/25 Ultrasound #1 43w 1d Other Estimates 06/23/25 LMP (Certain) 42w 1d 06/09/25 Ultrasound #2 44w 1d 06/16/25 Manual 43w 1d final tim: 05/24 12/14 Notes Visit Date: 05/22/25 Last Updated by: Jess Donnelly CNM GBS-, sono: 05/15: 31% EFW at 35w3, umbilical vein varix Visit Date: 04/29/25 Last Updated by: Jess Donnelly CNM sono 04/28/25: IUP 33 wk. EFW 91 %, ECHO ordered for IVF/Surrogacy, Ummbilical Vein varix, focal dilation of umb vein.. Star NST wk at 36 week. .f/u mfm 2 wk Visit Date: 04/14/25 Last Updated by: Jess Donnelly CNM 39 yo . 1st OB sono: 01/19/25. IUP 18w6. TIM: !. A+,ABS-, rpr::nr, RUB NI, Hbsag-, hiv-, HC-, GC/CT-. UT-, NIPT,AFP,carrier screen-, 1 hr gtt eevated, 3 hr gtt: normal. A1c>: 5.6 HPI Interval History: 39-year-old G5, P4 for 4-week . 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 And adoptive parents are from [place]. She had a vaginal June 12, 2025. Baby boy that weighed 7 pounds 13 ounces she is pumping and breast-feeding's. Patient is family is very supportive of what she has done and patient says that she is not depressed and there is no baby blues. She is happy for the doctor for the second family. She had a BTL after her last . She has not had any surgeries. She denies any chronic illness. She has no interval or OUTPATIENT PHYSICAL THERAPIST complaints and she needs a note to go back to work Was or delivery considered high risk: Yes Delivery type: vaginal Was labor induced: yes Gestational age at delivery (weeks): 39 Delivery date: 06/12/25 Delivering provider: bert donnelly Delivery complications: No Is patient : No Is patient sexually active: No Contraception planned: BTL Review of Systems Review of Systems ROS limited to current OUTPATIENT PHYSICAL THERAPIST complaints: Yes Exam Narrative Physical exam: Normal heart rate and rhythm. Lungs clear no wheezes. Abdomen is soft nontender. Uterus well involuted. Perineum is intact no lacerations. No swelling. Small lochia. Negative Homans' sign. 2+ DTRs. No edema no swelling. Breasts are soft Office Procedures OBC Clinic LOC & Office Proc's Nursing/Assessment Patient Status: Established Patient OB Clinic Nursing Assessment: Medication Reconciliation, Update PMH in EMR and Vital Signs OB Clinic Coordination of Care: Consent,records obtained, informed consent, Education Simp Pt/Fam, Lab and Imaging orders, Results/Orders obtained and Staff clarify orders Special Needs: Heart tones Established Patient Charge Established Patient Point Assignment: 110 Established Patient Point Charge: EP Level 3 (80-115) Assessment & Plan Diagnosis / Problem List (1) Routine Follow-Up: (2) 2 weeks follow-up: Status: Acute Plan Okay to resume sex already. Diet and exercise advised. Continue multivitamin. I gave some information on breastmilk banking and pumping. And return when needed for Pap Care Reviewed delivery summary and any complications: Yes Uterus involuted to: 3 below umb Perineal / incision healing noted: Yes Screened for depression: Yes Depression counseling provided: No Discussed family planning & contraception: Yes Contraception planned: BTL Counseling on safe resumption of sexual activity: Yes Counseling on gradual excercise: Yes Discussed and concerns (describe), provided support: Yes Referred to cash posting specialist: Yes Counseled on good nutrition, hydration, and self care: Yes Reviewed vaccine status: Yes Chronic & current problems reconciled on problem list: Yes Follow up: routine/prn Additional counseling & anticipatory guidance provided: Return to work 07/27/25 (FP) Tobacco Smoking Status: Never smoker
[2025-07-08 13:52] VITALS: BP 119/74; PULSE 83; RESP 18; TEMP 36.8; O2SAT 98
== END 2025-07-08 13:29 | disposition home or self-care (01) ==
LOC: HODSOBC 13:01
PROVIDERS: PCP Advanced Practice Midwife; Referring Provider Advanced Practice Midwife; Supervising Provider Advanced Practice Midwife; Visit Provider Advanced Practice Midwife
DX: Z39.2 Encounter for routine postpartum follow-up (principal); Z39.1 Encounter for care and examination of lactating mother
CPT/HCPCS: 99213; G0463